=== PATIENT | male | born 1970 | race Caucasian/White ===

== ENCOUNTER 2019-06-22 19:19 | Observation (INO) ==
[2019-06-22 20:15] LABS: Basophils # 0.1 K/mcL (0.0-0.2); Basophils % 0.5 %; Eosinophils # 0.1 K/mcL (0.0-0.6); Hematocrit 45.5 % (37.5-50.1); Hemoglobin 15.7 g/dL (12.9-16.9); Immature Granulocytes % 0.5 % (0-4); Lymphocytes # 2.8 K/mcL (0.6-4.6); Lymphocytes % 28.6 %; Mean Corpuscular HGB Conc 34.5 g/dL (31.6-35.5); Mean Corpuscular Volume 81.1 fL (83.0-100.0); Mean Platelet Volume 9.9 fL (9.4-12.4); Monocytes # 0.9 K/mcL (0.0-1.3); Neutrophils # 5.9 K/mcL (1.6-8.9); Platelet Count 303 K/mcL (140-400); Red Blood Count 5.61 M/mcL (4.19-5.50); Red Cell Distribution Width 13.7 % (11.5-14.5); Segmented Neutrophils % 60.4 %; White Blood Count 9.8 K/mcL (4.3-11.1)
[2019-06-22 20:35] LABS: Alanine Aminotransferase 34 Units/L (7-52); Albumin 4.5 g/dL (3.5-5.7); Albumin/Globulin Ratio 1.5 (1.1-2.2); Alkaline Phosphatase 74 Units/L (34-104); Aspartate Amino Transferase 17 Units/L (13-39); BUN/Creatinine Ratio 13 (6-26); Bilirubin,Direct 0.1 mg/dL (0.0-0.2); Bilirubin,Indirect 0.2 mg/dL (0.0-1.2); Bilirubin,Total 0.3 mg/dL (0.3-1.0); Blood Urea Nitrogen 16 mg/dL (6-20); Calcium 9.8 mg/dL (8.6-10.3); Carbon Dioxide 19 mEq/L (23-29); Chloride 107 mEq/L (98-107); Glucose 104 mg/dL (70-105); Lipase 12 Units/L (11-82); Osmolality,Calculated 283 (280-300); Potassium 3.6 mEq/L (3.5-5.1); Sodium 136 mEq/L (136-145); Total Protein 7.5 g/dL (6.4-8.9); eGFR For African Americans > 60 (> 60); eGFR For Non-African Americans > 60 (> 60)
[2019-06-22 20:38] LABS: Bacteria,Urine None Seen per hpf (None-Few); Hyaline Casts,Urine Few per lpf (None-Few); Squamous Epithelial Cell,Urine Many per lpf (None-Few); WBC,Urine 0-3 per hpf (0-3)
[2019-06-22 20:39] LABS: Bilirubin,Urine Small (Negative); Blood,Urine Trace-intact (Negative); Clarity,Urine Clear (Clear); Color,Urine Yellow (Yellow); Glucose,Urine (UA) Normal (Normal); Ketones,Urine Negative (Negative); Leukocyte Esterase,Urine Negative (Negative); Nitrite,Urine Negative (Negative); PH,Urine 6.5 pH Units (5.0-8.0); Protein,Urine 30 mg/dL (Neg-Trace); Specific Gravity,Urine 1.025 (1.010-1.025); Urobilinogen,Urine Normal (Normal)
[2019-06-22] MEDS ORDERED: 0.9 % Sodium Chloride 1,000 ML IVC ONE (20:51)
[2019-06-22] MEDS ORDERED: *HR* HYDROmorphone (PF) 1 MG/ML SYRINGE IVP ONE ×2 (20:51→23:42)
[2019-06-22] MEDS ORDERED: Ondansetron 4 MG/2 ML VIAL IVP ONE (20:51)
[2019-06-22] MEDS ORDERED: Isovue-370 500 ML BOTTLE IVP ONE (20:51)
--- NOTE | 2019-06-22 23:37 | Emergency Department Note ---
Disposition Clinical Impression: Abdominal pain Qualifiers: Abdominal location: epigastric Qualified Code(s): R10.13 - Epigastric pain Pancreatitis Qualifiers: Chronicity: chronic Pancreatitis type: unspecified pancreatitis type Qualified Code(s): K86.1 - Other chronic pancreatitis Disposition: Admitted As Inpatient Condition: Good Time of Disposition: 00:55 Abdominal Pain HPI - General Chief Complaint: ED Abdominal Pain Stated Complaint: pain in back, burning inside rib cage Time Seen by Provider: 06/22/19 20:52 Source: patient - History of Present Illness HPI Narrative: Patient 29-year-old gentleman presents the emergency department with chief complaint of abdominal pain. The patient reports that he has history of pancreatitis and had a recent flareup and was seen at [facility]. The patient states he had laboratory studies and a CT scan there and they wanted to admit him to the hospital because of the pain that he was having. The patient states that they did not have beds available Pain Scale: 8 - Related Data Home Medications Medication Instructions Recorded Confirmed No Known Home Drugs 06/22/19 06/22/19 Allergies Allergy/AdvReac Type Severity Reaction Status Date / Time No Known Allergies Allergy Verified 06/22/19 19:24 Abdominal Pain PMH - Past Medical History Medical history: Reports: other Psychiatric history: Reports: no psych history - Social History Smoking status: Current every day smoker Alcohol use: Reports: none Drug use: Reports: none Physical Exam - General Limitations: no limitations General appearance: alert Course Vital Signs Temperature 98.5 F 06/22/19 19:21 Pulse Rate 111 06/22/19 19:21 Respiratory Rate 20 06/22/19 19:21 Blood Pressure 141/86 06/22/19 19:21 O2 Sat by Pulse Oximetry 99 06/22/19 19:21 Temperature 97.7 F 06/23/19 02:47 Pulse Rate 69 06/23/19 02:47 Respiratory Rate 15 06/23/19 02:47 Blood Pressure 127/77 06/23/19 02:47 O2 Sat by Pulse Oximetry 96 06/23/19 02:47 Oxygen Delivery Oxygen Delivery Room Air Abdominal Pain - Lab Data Result diagrams: 06/22/19 19:59 06/22/19 19:59 Lab Results 06/22/19 06/22/19 06/22/19 Range/Units 19:59 19:59 20:22 WBC 9.8 (4.3-11.1) K/mcL RBC 5.61 H (4.19-5.50) M/mcL Hgb 15.7 (12.9-16.9) g/dL Hct 45.5 (37.5-50.1) % MCV 81.1 L (83.0-100.0) fL MCH 28.0 (28.0-33.3) pg MCHC 34.5 (31.6-35.5) g/dL RDW 13.7 (11.5-14.5) % Plt Count 303 (140-400) K/mcL MPV 9.9 (9.4-12.4) fL Immature Gran % 0.5 (0-4) % Seg Neutrophils % 60.4 % Lymphocytes % 28.6 % Monocytes % 9.0 % Eosinophils % 1.0 % Basophils % 0.5 % Neutrophils # 5.9 (1.6-8.9) K/mcL Lymphocytes # 2.8 (0.6-4.6) K/mcL Monocytes # 0.9 (0.0-1.3) K/mcL Eosinophils # 0.1 (0.0-0.6) K/mcL Basophils # 0.1 (0.0-0.2) K/mcL Sodium 136 (136-145) mEq/L Potassium 3.6 (3.5-5.1) mEq/L Chloride 107 (98-107) mEq/L Carbon Dioxide 19 L (23-29) mEq/L BUN 16 (6-20) mg/dL Creatinine 1.25 (0.70-1.30) mg/dL Est GFR ( Amer) > 60 (> 60) Est GFR (Non-Af Amer) > 60 (> 60) BUN/Creatinine Ratio 13 (6-26) Glucose 104 (70-105) mg/dL Calculated Osmolality 283 (280-300) Calcium 9.8 (8.6-10.3) mg/dL Total Bilirubin 0.3 (0.3-1.0) mg/dL Direct Bilirubin 0.1 (0.0-0.2) mg/dL Indirect Bilirubin 0.2 (0.0-1.2) mg/dL AST 17 (13-39) Units/L ALT 34 (7-52) Units/L Alkaline Phosphatase 74 (34-104) Units/L Troponin I (< 0.04) ng/mL Serum Total Protein 7.5 (6.4-8.9) g/dL Albumin 4.5 (3.5-5.7) g/dL Globulin 3.0 (2.4-3.5) g/dL Albumin/Globulin Ratio 1.5 (1.1-2.2) Lipase 12 (11-82) Units/L Urine Color Yellow (Yellow) Urine Clarity Clear (Clear) Urine pH 6.5 (5.0-8.0) pH Units Ur Specific [place] 1.025 (1.010-1.025) Urine Protein 30 H (Neg-Trace) mg/dL Urine Glucose (UA) Normal (Normal) mg/dL Urine Ketones Negative (Negative) mg/dL Urine Blood Trace-intact H (Negative) Urine Nitrite Negative (Negative) Urine Bilirubin Small H (Negative) Urine Urobilinogen Normal (Normal) mg/dL Ur Leukocyte Esterase Negative (Negative) Urine Microscopic RBC 5-15 H (0-3) per hpf Urine Microscopic WBC 0-3 (0-3) per hpf Ur Squamous Epith Cells Many H (None-Few) per lpf Urine Bacteria None Seen (None-Few) per hpf Hyaline Casts Few (None-Few) per lpf Ur Culture Indicated? NO (NO) 06/22/19 Range/Units 23:53 WBC (4.3-11.1) K/mcL RBC (4.19-5.50) M/mcL Hgb (12.9-16.9) g/dL Hct (37.5-50.1) % MCV (83.0-100.0) fL MCH (28.0-33.3) pg MCHC (31.6-35.5) g/dL RDW (11.5-14.5) % Plt Count (140-400) K/mcL MPV (9.4-12.4) fL Immature Gran % (0-4) % Seg Neutrophils % % Lymphocytes % % Monocytes % % Eosinophils % % Basophils % % Neutrophils # (1.6-8.9) K/mcL Lymphocytes # (0.6-4.6) K/mcL Monocytes # (0.0-1.3) K/mcL Eosinophils # (0.0-0.6) K/mcL Basophils # (0.0-0.2) K/mcL Sodium (136-145) mEq/L Potassium (3.5-5.1) mEq/L Chloride (98-107) mEq/L Carbon Dioxide (23-29) mEq/L BUN (6-20) mg/dL Creatinine (0.70-1.30) mg/dL Est GFR ( Amer) (> 60) Est GFR (Non-Af Amer) (> 60) BUN/Creatinine Ratio (6-26) Glucose (70-105) mg/dL Calculated Osmolality (280-300) Calcium (8.6-10.3) mg/dL Total Bilirubin (0.3-1.0) mg/dL Direct Bilirubin (0.0-0.2) mg/dL Indirect Bilirubin (0.0-1.2) mg/dL AST (13-39) Units/L ALT (7-52) Units/L Alkaline Phosphatase (34-104) Units/L Troponin I < 0.03 (< 0.04) ng/mL Serum Total Protein (6.4-8.9) g/dL Albumin (3.5-5.7) g/dL Globulin (2.4-3.5) g/dL Albumin/Globulin Ratio (1.1-2.2) Lipase (11-82) Units/L Urine Color (Yellow) Urine Clarity (Clear) Urine pH (5.0-8.0) pH Units Ur Specific [place] (1.010-1.025) Urine Protein (Neg-Trace) mg/dL Urine Glucose (UA) (Normal) mg/dL Urine Ketones (Negative) mg/dL Urine Blood (Negative) Urine Nitrite (Negative) Urine Bilirubin (Negative) Urine Urobilinogen (Normal) mg/dL Ur Leukocyte Esterase (Negative) Urine Microscopic RBC (0-3) per hpf Urine Microscopic WBC (0-3) per hpf Ur Squamous Epith Cells (None-Few) per lpf Urine Bacteria (None-Few) per hpf Hyaline Casts (None-Few) per lpf Ur Culture Indicated? (NO)
[2019-06-23] MEDS ORDERED: Naloxone 0.4 MG/ML INJ IVP PRN (03:33)
[2019-06-23] MEDS ORDERED: Nicotine 21 MG PATCH.TD24 TD SCH (03:45)
[2019-06-23] MEDS ORDERED: *HR* HYDROmorphone (PF) 1 MG/ML SYRINGE IVP PRN (06:50)
--- NOTE | 2019-06-23 06:54 | Internal Med History&Physical ---
Date of Encounter: 06/23/19 Time of Encounter: 06:00 Internal Medicine - H&P: HPI Chief complaint: Chronic pancreatitis Admitted From: Emergency Dept Plans for Post Hospital Care: Home History of present illness: Mr. Perez is a 49 year old male Patient presented to the ER with abdominal pain. He has a history of chronic pancreatitis, and this presentation is similar to his previous episodes. He states that he has had this on and off for the past 4 years, and a few weeks ago he presented to [facility] for evaluation. He had conflicts with the providers there, and thus did not seek further care there. His PCP recommended he come to [facility] for evaluation. ER vital signs: Temperature 98.5, Pulse, 111, Resp. rate 20, Blood pressure 141/86, O2 sat 99% on room air CBC: unremarkable BMP: unremarkable Lipase 12 Initial troponin undetectable UA: negative for infection EKG: Sinus tach, rate 101, QTc 452ms. No ST changes. CT abdomen: IMPRESSION: No CT evidence of intra-abdominal pathology to explain the patient's pain. Calcifications seen in the head of the pancreas and mild prominence/dilatation of the main pancreatic duct. This can be seen with chronic inflammation. Clinical correlation is recommended and comparison with any prior imaging for stability. Otherwise if there is clinical concern pancreatic protocol MRI in 3-6 months can be obtained. In the ER patient received 1 liter of IV fluids, Dilaudid and zofran. He was admitted to the hospital for further management. Upon my assessment, patient is resting in the hospital bed in mild distress due to pain. He denies chest pain, nausea, vomiting, diarrhea and constipation. He has epigastric abdominal pain, with radiation to his back similar to his past pancreatitis episodes. He feels short of breath as well because he cant take deep breaths due to the pain. He denies alcohol use, smokes 1PPD, and denies other drug use. His parents were both adopted, and he did not know his father. His mother has a history of diabetes and liver disease. He is a full code. Past Med Surg Social Fam HX - Past Medical History Medical history: other Additional medical history: pancreatitis Psychiatric history: no psych history - Past Surgical History Additional surgical history: L shoulder - Social History Smoking Status: Current every day smoker Packs per day: 1 Smokeless Tobacco Status: No Alcohol use: none Drug use: none - Family History Mother Living Status: Still Living Hx Family Cancer: Yes Hx Family Endocrine Disorder: Yes Internal Medicine - H&P: Meds No Known Home Drugs 06/22/19 [History] Allergy/AdvReac Type Severity Reaction Status Date / Time No Known Allergies Allergy Verified 06/22/19 19:24 All Systems PM: A 10-system review of systems was performed and is negative for pertinent findings except as documented above in the HPI. - Constitutional Vitals: Temp Pulse Resp BP Pulse Ox 97.7 F 69 15 127/77 96 06/23/19 02:47 06/23/19 02:47 06/23/19 02:47 06/23/19 02:47 06/23/19 02:47 General appearance: Present: cooperative, mild distress, A&O X 3, pleasant, answers questions appropriately Exam: - - Head Head exam: Present: normal inspection - Eye Eye exam: Present: EOMI, normal appearance - Respiratory Respiratory exam: Present: CTAB. Absent: rales, respiratory distress, rhonchi, wheezes - Cardiovascular Cardiovascular exam: Present: RRR. Absent: diastolic murmur, systolic murmur - GI/Abdominal GI/Abdominal exam: Present: normal bowel sounds, soft, tenderness Additional comments: Epigastric tenderness with palpation - Extremities Exam Extremities exam: Present: warm, radial pulses palpable and symmetrical. Absen t: calf tenderness, pedal edema, tenderness - Neurological Exam Neurological exam: Present: no focal deficits, strengths equal and symetr throughout. Absent: motor sensory deficit, facial droop, speech deficit - Skin Skin exam: Present: dry, normal color, warm Internal Med - H&P Results - Labs CBC & Chem 7: 06/22/19 19:59 06/22/19 19:59 Labs: Short CBC 06/22/19 Range/Units 19:59 WBC 9.8 (4.3-11.1) K/mcL Hgb 15.7 (12.9-16.9) g/dL Hct 45.5 (37.5-50.1) % Plt Count 303 (140-400) K/mcL Neutrophils # 5.9 (1.6-8.9) K/mcL BMP 06/22/19 19:59 Sodium 136 Potassium 3.6 Chloride 107 Carbon Dioxide 19 L BUN 16 Creatinine 1.25 Glucose 104 Calcium 9.8 Cardiac Enzymes 06/22/19 Range/Units 23:53 Troponin I < 0.03 (< 0.04) ng/mL Liver Function 06/22/19 Range/Units 19:59 Total Bilirubin 0.3 (0.3-1.0) mg/dL Direct Bilirubin 0.1 (0.0-0.2) mg/dL AST 17 (13-39) Units/L ALT 34 (7-52) Units/L Alkaline Phosphatase 74 (34-104) Units/L Albumin 4.5 (3.5-5.7) g/dL Urine 06/22/19 Range/Units 20:22 Urine Color Yellow (Yellow) Urine Clarity Clear (Clear) Urine pH 6.5 (5.0-8.0) pH Units Ur Specific [place] 1.025 (1.010-1.025) Urine Protein 30 H (Neg-Trace) mg/dL Urine Glucose (UA) Normal (Normal) mg/dL - Impressions ITS Impressions Abdomen/Pelvis CT 06/22/19 21:35 IMPRESSION: No CT evidence of intra-abdominal pathology to explain the patient's pain. Calcifications seen in the head of the pancreas and mild prominence/dilatation of the main pancreatic duct. This can be seen with chronic inflammation. Clinical correlation is recommended and comparison with any prior imaging for stability. Otherwise if there is clinical concern pancreatic protocol MRI in 3-6 months can be obtained. D/ / Praveen Fagan / Praveen Fagan Interpreting Provider: Praveen Fagan - Assessment and Plan (1) Pancreatitis Current Visit: Yes Status: Acute Assessment and plan: Patient has chronic pancreatitis. He states that he is not sure what triggers his pancreatitis. He denies alcohol use. He is unclear of his family history. His lipase is not elevated, but CT does show inflammation. He states that he typically does not get elevated lipase. Nothing by mouth IV fluid hydration Pain management as needed Advance diet as tolerated Qualifiers: Chronicity: chronic Pancreatitis type: unspecified pancreatitis type Qualified Code(s): K86.1 - Other chronic pancreatitis (2) Abdominal pain Current Visit: Yes Status: Acute Assessment and plan: Likely secondary to pancreatitis. He has had multiple flareups of this over the years, most recently about 2 years ago. He has had the pain off and on since then but has not come into the hospital. He has also been experiencing dark stools lately, and this potentially could also be a ulcer of some kind. Management as above Stool occult blood test Qualifiers: Abdominal location: epigastric Qualified Code(s): R10.13 - Epigastric pain (3) Dark stools Current Visit: Yes Status: Acute Assessment and plan: Patient states that he has had some dark stools. He recently took a colon test for his PCP and it came back positive. He has never had a colonoscopy before. He was to follow-up outpatient with a GI doctor at [facility]. Hemoglobin currently stable. Stool occult blood test (4) Current nicotine use Current Visit: Yes Status: Acute Assessment and plan: Nicotine patch (5) DVT prophylaxis Current Visit: Yes Status: Acute Assessment and plan: SCDs - Time Spent With Patient Total time spent is greater than 50% in coordination of care (as documented) at patient's floor/unit and/or counseling patient:
[2019-06-23] MEDS: *HR* HYDROmorphone (PF) 1 MG/ML SYRINGE IVP PRN ×4 (08:18→23:21)
[2019-06-23] MEDS: 0.9 % Sodium Chloride 1,000 ML IVC SCH ×2 (08:19→15:35)
[2019-06-23 09:06] LABS: Hematocrit 43.1 % (37.5-50.1); Mean Corpuscular HGB Conc 32.7 g/dL (31.6-35.5); Mean Corpuscular Hemoglobin 28.1 pg (28.0-33.3); Mean Corpuscular Volume 85.9 fL (83.0-100.0); Mean Platelet Volume 10.2 fL (9.4-12.4); Platelet Count 271 K/mcL (140-400); Red Blood Count 5.02 M/mcL (4.19-5.50); Red Cell Distribution Width 13.8 % (11.5-14.5); White Blood Count 9.3 K/mcL (4.3-11.1)
[2019-06-23 09:08] LABS: Hemoglobin 14.1 g/dL (12.9-16.9)
[2019-06-23 09:24] LABS: BUN/Creatinine Ratio 14 (6-26); Blood Urea Nitrogen 16 mg/dL (6-20); Calcium 8.8 mg/dL (8.6-10.3); Carbon Dioxide 26 mEq/L (23-29); Chloride 108 mEq/L (98-107); Chol/HDL Ratio 4.8 (0-4.9); Cholesterol 174 mg/dL (< 200); Glucose 81 mg/dL (70-105); HDL Cholesterol 36 mg/dL (40-59); LDL Cholesterol,Calculated 116 mg/dL (0-99); Osmolality,Calculated 284 (280-300); Potassium 3.8 mEq/L (3.5-5.1); Sodium 137 mEq/L (136-145); Triglycerides 112 mg/dL (< 150); eGFR For African Americans > 60 (> 60); eGFR For Non-African Americans > 60 (> 60)
--- NOTE | 2019-06-23 11:13 | Event Note ---
Date of Encounter: 06/23/19 Time of Encounter: 09:30 H&P reviewed. 49-year-old male with self-reported history of chronic pancreatitis of unknown etiology for the last 4 years was admitted overnight due to intractable epigastric pain. It was attribute it to acute on chronic pancreatitis but laboratory workup is unremarkable including WBC and lipase. LFT unremarkable and CT only showed calcifications in the head of the pancreas and mild prominence of the main pancreatic duct. Will initiate the workup including US and lipid panel. Keep NPO and continue IVF and analgesics.
--- NOTE | 2019-06-23 12:38 | Electrocardiograph Report ---
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
[2019-06-24] MEDS: *HR* HYDROmorphone (PF) 1 MG/ML SYRINGE IVP PRN (04:00)
[2019-06-24] MEDS ORDERED: *HR* Dextrose 50 % in Water (Syg) 50 ML SYRINGE IVP PRN (05:41)
[2019-06-24] MEDS ORDERED: Dextrose Gel 15 GM/37.5 ML TUBE PO PRN ×2 (05:41)
[2019-06-24] MEDS ORDERED: D5% in Water 1,000 ML IVC PRN (05:41)
[2019-06-24 05:52] LABS: Basophils % 0.3 %; Eosinophils # 0.2 K/mcL (0.0-0.6); Eosinophils % 2.2 %; Hematocrit 42.7 % (37.5-50.1); Hemoglobin 13.8 g/dL (12.9-16.9); Immature Granulocytes % 0.4 % (0-4); Lymphocytes # 2.6 K/mcL (0.6-4.6); Lymphocytes % 28.7 %; Mean Corpuscular HGB Conc 32.3 g/dL (31.6-35.5); Mean Corpuscular Volume 86.8 fL (83.0-100.0); Mean Platelet Volume 9.9 fL (9.4-12.4); Monocytes # 0.7 K/mcL (0.0-1.3); Monocytes % 8.1 %; Neutrophils # 5.5 K/mcL (1.6-8.9); Platelet Count 259 K/mcL (140-400); Red Blood Count 4.92 M/mcL (4.19-5.50); Red Cell Distribution Width 13.9 % (11.5-14.5); Segmented Neutrophils % 60.3 %; White Blood Count 9.1 K/mcL (4.3-11.1)
[2019-06-24 06:18] LABS: Alanine Aminotransferase 28 Units/L (7-52); Albumin 3.9 g/dL (3.5-5.7); Albumin/Globulin Ratio 1.4 (1.1-2.2); Alkaline Phosphatase 78 Units/L (34-104); Aspartate Amino Transferase 15 Units/L (13-39); BUN/Creatinine Ratio 17 (6-26); Bilirubin,Total 0.8 mg/dL (0.3-1.0); Blood Urea Nitrogen 18 mg/dL (6-20); Calcium 8.6 mg/dL (8.6-10.3); Carbon Dioxide 24 mEq/L (23-29); Chloride 105 mEq/L (98-107); Globulin 2.7 g/dL (2.4-3.5); Glucose 73 mg/dL (70-105); Osmolality,Calculated 280 (280-300); Potassium 3.8 mEq/L (3.5-5.1); Sodium 135 mEq/L (136-145); Total Protein 6.6 g/dL (6.4-8.9); eGFR For African Americans > 60 (> 60); eGFR For Non-African Americans > 60 (> 60)
[2019-06-24 06:31] VITALS: BP 115/75
--- NOTE | 2019-06-24 08:43 | Discharge Summary ---
- NOTES TO OUTPATIENT PROVIDER Notes to Outpatient Provider: Left AMA, suspect drug-seeking behavior Orders not resulted at time of discharge: Pending orders 06/23/19 06:51 Occult Blood,Stool [BF] Routine Date of Encounter: 06/24/19 Time of Encounter: 07:15 - Discharge Diagnosis (1) Pancreatitis Priority: Primary Status: Acute Qualifiers: Chronicity: chronic Pancreatitis type: unspecified pancreatitis type Qualified Code(s): K86.1 - Other chronic pancreatitis (2) Abdominal pain Priority: Secondary Status: Acute Qualifiers: Abdominal location: epigastric Qualified Code(s): R10.13 - Epigastric pain (3) Dark stools Priority: Secondary Status: Acute (4) Current nicotine use Priority: Secondary Status: Acute (5) DVT prophylaxis Priority: Secondary Status: Acute (6) Drug-seeking behavior Priority: Secondary Status: Acute Hospital course: Mr. Perez is a 49 year old male with self-reported history of chronic pancreatitis of unknown etiology for the last 4 years who was admitted overnight due to intractable epigastric pain. It was attributed to acute on chronic pancreatitis but laboratory workup was unremarkable including WBC and lipase. CT also did not show any acute pancreatic edema or peripancreatic stranding but only demonstrated calcifications in the head of pancreas and mild prominence of the main pancreatic duct. EtOH level and TG were normal and US did not show any acute findings. However, despite being treated adequately for 24 hours, he continued to complain of epigastric pain hence he was advised that he is kept NPO for another day. When he was told of the suggestion, he decided to leave AMA despite being informed of the risk of worsening pancreatitis, sepsis, and potential . Based on his demeanor and exam findings which did not really reveal significant epigastric tenderness especially when he is distracted, I am concerned for potential drug seeking behavior as he was requiring fairly high dose of dilaudid during his stay. Discharge discussed with: patient, nurse - Time Spent with Patient Total time spent providing and/or coordinating discharge services: - Discharge Medications Prescriptions: No Action No Known Home Drugs 1 each .ROUTE AD each Home Medications: No Known Home Drugs 06/22/19 [History] Allergies/Adverse Reactions: Allergy/AdvReac Type Severity Reaction Status Date / Time No Known Allergies Allergy Verified 06/23/19 09:32 Date of admission: 06/23/19 01:59 Primary care physician: PCP NONE Consults: 06/23/19 02:39 Consult to Nutrition [CONS] Routine Comment: Consulting Provider: NUTRITION Reason for Dietary Consult: MST Score - Constitutional Vitals: Temp Pulse Resp BP Pulse Ox 97.7 F 71 17 115/75 96 06/24/19 06:24 06/24/19 06:24 06/24/19 06:24 06/24/19 06:24 06/24/19 06:24 General appearance: Present: cooperative, mild distress, A&O X 3, pleasant, answers questions appropriately Exam: General: Alert and oriented, not in acute distress. Cardiovascular:Normal S1 & S2, No JVD. Pulse regular. Lungs: clear to auscultation, no wheezes/rales Abdomen:Soft, inconsistent tenderness in the epigastric region which appears to be much less when he is distracted. No peritoneal signs Extremities:No deformity or swelling Neurological:Normal cognition and motor skills. Non-focal Skin:Normal color, no rash, no lesions. - Patient Status Disposition: Left Against Medical Advice Condition: Good - Discharge Instructions Instructions: Pancreatitis (DC) Follow Up With: NONE,PCP [Primary Care Provider] -
== END 2019-06-24 08:30 | disposition left against medical advice (07) ==
LOC: EMEROOARM 19:19 → 3ANU 19:19 → SUATTDRO 06-23 01:59 → 3ANU 06-23 02:22
PROVIDERS: ADMIT Internal Medicine; ATTEND Internal Medicine

== ENCOUNTER 2020-01-29 16:00 | Observation (INO) ==
[2020-01-29] MEDS ORDERED: 0.9 % Sodium Chloride 1,000 ML IVC ONE (16:16)
[2020-01-29] MEDS ORDERED: *HR* FentaNYL (PF) 100 MCG/2 ML VIAL IVP STA (16:16)
[2020-01-29] MEDS ORDERED: Ondansetron 4 MG/2 ML VIAL IVP STA (16:16)
[2020-01-29 17:00] LABS: Prothrombin Time 11.2 Seconds (9.4-12.1)
[2020-01-29 17:03] LABS: Basophils # 0.1 K/mcL (0.0-0.2); Basophils % 0.4 %; Eosinophils % 0.1 %; Hematocrit 45.8 % (37.5-50.1); Immature Granulocytes % 0.9 % (0-4); Lymphocytes # 0.9 K/mcL (0.6-4.6); Lymphocytes % 8.4 %; Mean Corpuscular HGB Conc 32.8 g/dL (31.6-35.5); Mean Corpuscular Volume 82.5 fL (83.0-100.0); Mean Platelet Volume 9.4 fL (9.4-12.4); Monocytes # 0.1 K/mcL (0.0-1.3); Monocytes % 0.8 %; Neutrophils # 9.9 K/mcL (1.6-8.9); Platelet Count 419 K/mcL (140-400); Red Blood Count 5.55 M/mcL (4.19-5.50); Red Cell Distribution Width 13.9 % (11.5-14.5); Segmented Neutrophils % 89.4 %; White Blood Count 11.1 K/mcL (4.3-11.1)
[2020-01-29 17:14] LABS: Alanine Aminotransferase 20 Units/L (7-52); Albumin 4.3 g/dL (3.5-5.7); Albumin/Globulin Ratio 1.4 (1.1-2.2); Alkaline Phosphatase 84 Units/L (34-104); Aspartate Amino Transferase 15 Units/L (13-39); BUN/Creatinine Ratio 10 (6-26); Bilirubin,Direct 0.1 mg/dL (0.0-0.2); Bilirubin,Indirect 0.2 mg/dL (0.0-1.0); Bilirubin,Total 0.3 mg/dL (0.3-1.0); Blood Urea Nitrogen 10 mg/dL (6-20); Calcium 9.1 mg/dL (8.6-10.3); Carbon Dioxide 22 mEq/L (23-29); Chloride 102 mEq/L (98-107); Globulin 3.1 g/dL (2.4-3.5); Glucose 158 mg/dL (70-105); Lipase 114 Units/L (11-82); Osmolality,Calculated 280 (280-300); Potassium 3.8 mEq/L (3.5-5.1); Sodium 134 mEq/L (136-145); Total Protein 7.4 g/dL (6.4-8.9); eGFR For African Americans > 60 (> 60); eGFR For Non-African Americans > 60 (> 60)
[2020-01-29] MEDS ORDERED: *HR* HYDROmorphone (PF) 1 MG/ML SYRINGE IVP ONE (17:43)
[2020-01-29 17:49] LABS: Bilirubin,Urine Negative (Negative); Blood,Urine Trace (Negative); Clarity,Urine Clear (Clear); Color,Urine Yellow (Yellow); Glucose,Urine (UA) Normal (Normal); Ketones,Urine Negative (Negative); Leukocyte Esterase,Urine Negative (Negative); Nitrite,Urine Negative (Negative); Protein,Urine Negative (Neg-Trace); Specific Gravity,Urine > 1.030 (1.010-1.025); Urobilinogen,Urine Normal (Normal)
[2020-01-29 17:50] LABS: Bacteria,Urine None Seen per hpf (None-Few); Hyaline Casts,Urine None Seen per lpf (None-Few); RBC,Urine 0-3 per hpf (0-3); Squamous Epithelial Cell,Urine Moderate per lpf (None-Few); WBC,Urine 0-3 per hpf (0-3)
[2020-01-29] MEDS ORDERED: Ondansetron ODT 4 MG TAB.RAPDIS SL PRN (20:19)
[2020-01-29] MEDS ORDERED: Naloxone 0.4 MG/ML INJ IVP PRN (20:19)
[2020-01-29] MEDS ORDERED: Acetaminophen 325 MG TABLET PO PRN (20:19)
[2020-01-29] MEDS: *HR* HYDROcodone/Acet 5/325 mg TABLET PO PRN (21:21)
[2020-01-29] MEDS: Ringers Solution, Lactated 1,000 ML IVC SCH (21:21)
[2020-01-29] MEDS: Nicotine 21 MG PATCH.TD24 TD SCH (22:13)
[2020-01-30 03:20] LABS: Basophils % 0.2 %; Hematocrit 44.2 % (37.5-50.1); Hemoglobin 14.6 g/dL (12.9-16.9); Lymphocytes # 1.7 K/mcL (0.6-4.6); Lymphocytes % 13.8 %; Mean Corpuscular Hemoglobin 27.1 pg (28.0-33.3); Mean Platelet Volume 9.5 fL (9.4-12.4); Monocytes # 0.2 K/mcL (0.0-1.3); Monocytes % 1.9 %; Neutrophils # 10.3 K/mcL (1.6-8.9); Platelet Count 398 K/mcL (140-400); Red Blood Count 5.39 M/mcL (4.19-5.50); Red Cell Distribution Width 13.8 % (11.5-14.5); Segmented Neutrophils % 83.1 %; White Blood Count 12.4 K/mcL (4.3-11.1)
[2020-01-30] MEDS: Ketorolac 30 MG/ML VIAL IVP PRN ×2 (03:35→10:18)
[2020-01-30 03:39] LABS: BUN/Creatinine Ratio 11 (6-26); Blood Urea Nitrogen 10 mg/dL (6-20); Calcium 8.9 mg/dL (8.6-10.3); Carbon Dioxide 22 mEq/L (23-29); Chloride 102 mEq/L (98-107); Glucose 123 mg/dL (70-105); Magnesium 1.9 mg/dL (1.6-2.6); Osmolality,Calculated 276 (280-300); Phosphorous 2.7 mg/dL (2.7-4.5); Potassium 4.2 mEq/L (3.5-5.1); Sodium 133 mEq/L (136-145); eGFR For African Americans > 60 (> 60); eGFR For Non-African Americans > 60 (> 60)
[2020-01-30] MEDS: Ringers Solution, Lactated 1,000 ML IVC SCH (03:58)
[2020-01-30] MEDS: *HR* Heparin 5,000 UNIT/ML VIAL SQ SCH ×2 (05:37→17:42)
[2020-01-30] MEDS: *HR* HYDROcodone/Acet 5/325 mg TABLET PO PRN ×3 (06:21→20:07)
[2020-01-30] MEDS: Nicotine 21 MG PATCH.TD24 TD SCH ×2 (08:20→20:07)
[2020-01-30] MEDS: MetroNIDAZOLE 500 MG/100 ML 500 MG/100 ML BAG IVPB SCH ×2 (10:20→17:43)
[2020-01-30 11:54] LABS: Chol/HDL Ratio 5.7 (0-4.9); Cholesterol 204 mg/dL (< 200); HDL Cholesterol 36 mg/dL (40-59); LDL Cholesterol,Calculated 144 mg/dL (0-99); Lipase 36 Units/L (11-82); Triglycerides 118 mg/dL (< 150)
[2020-01-31] MEDS: MetroNIDAZOLE 500 MG/100 ML 500 MG/100 ML BAG IVPB SCH ×2 (00:39→08:47)
[2020-01-31 02:39] LABS: Basophils # 0.1 K/mcL (0.0-0.2); Basophils % 0.6 %; Eosinophils # 0.1 K/mcL (0.0-0.6); Eosinophils % 1.1 %; Hemoglobin 14.1 g/dL (12.9-16.9); Immature Granulocytes % 0.4 % (0-4); Lymphocytes # 3.3 K/mcL (0.6-4.6); Lymphocytes % 36.1 %; Mean Corpuscular Hemoglobin 26.5 pg (28.0-33.3); Mean Corpuscular Volume 82.6 fL (83.0-100.0); Mean Platelet Volume 9.8 fL (9.4-12.4); Monocytes # 0.7 K/mcL (0.0-1.3); Monocytes % 7.5 %; Neutrophils # 4.9 K/mcL (1.6-8.9); Platelet Count 359 K/mcL (140-400); Red Blood Count 5.33 M/mcL (4.19-5.50); Red Cell Distribution Width 14.1 % (11.5-14.5); Segmented Neutrophils % 54.3 %; White Blood Count 9.1 K/mcL (4.3-11.1)
[2020-01-31 02:58] LABS: Alanine Aminotransferase 18 Units/L (7-52); Albumin 3.7 g/dL (3.5-5.7); Albumin/Globulin Ratio 1.4 (1.1-2.2); Alkaline Phosphatase 64 Units/L (34-104); Aspartate Amino Transferase 16 Units/L (13-39); BUN/Creatinine Ratio 15 (6-26); Bilirubin,Total 0.4 mg/dL (0.3-1.0); Blood Urea Nitrogen 15 mg/dL (6-20); Calcium 8.7 mg/dL (8.6-10.3); Carbon Dioxide 23 mEq/L (23-29); Chloride 104 mEq/L (98-107); Globulin 2.7 g/dL (2.4-3.5); Glucose 85 mg/dL (70-105); Magnesium 2.1 mg/dL (1.6-2.6); Osmolality,Calculated 278 (280-300); Phosphorous 2.6 mg/dL (2.7-4.5); Sodium 134 mEq/L (136-145); Total Protein 6.4 g/dL (6.4-8.9); eGFR For African Americans > 60 (> 60); eGFR For Non-African Americans > 60 (> 60)
[2020-01-31] MEDS: *HR* HYDROcodone/Acet 5/325 mg TABLET PO PRN (03:15)
[2020-01-31] MEDS: *HR* Heparin 5,000 UNIT/ML VIAL SQ SCH (05:39)
[2020-01-31] MEDS: Ketorolac 30 MG/ML VIAL IVP PRN (05:40)
[2020-01-31 11:14] VITALS: BP 129/77
== END 2020-01-31 11:21 | disposition home or self-care (01) ==
LOC: EMEROOARM 16:00 → 3BNU 16:00 → SUATTDRO 19:16 → 3BNU 19:57
PROVIDERS: ADMIT Family Medicine; ATTEND Internal Medicine

== ENCOUNTER 2020-11-26 10:54 | Observation (INO) ==
[2020-11-26] MEDS ORDERED: CeFAZolin Syr 2,000MG/20 ML 2,000 MG/20 ML SYRINGE IVPB ONE (11:13)
[2020-11-26] MEDS ORDERED: Ringers Solution, Lactated 1,000 ML IVC SCH ×2 (11:15→15:50)
[2020-11-26] MEDS ORDERED: *HR* Succinylcholine 200 MG/10 ML VIAL IVP ONE (11:34)
[2020-11-26] MEDS ORDERED: Ondansetron 4 MG/2 ML VIAL ONE (11:34)
[2020-11-26] MEDS ORDERED: *HR* Propofol 200 MG/20 ML VIAL IVP ONE (11:34)
[2020-11-26] MEDS ORDERED: *HR* Midazolam HCl 2 MG/2 ML VIAL ONE (11:34)
[2020-11-26] MEDS ORDERED: *HR* FentaNYL (PF) 100 MCG/2 ML VIAL ONE ×2 (11:34→13:54)
[2020-11-26] MEDS ORDERED: Lidocaine -MPF 2% 2 ML VIAL ONE (11:34)
[2020-11-26] MEDS ORDERED: Dexamethasone 4 MG/ML VIAL ONE ×2 (11:34→13:52)
[2020-11-26] MEDS ORDERED: *HR* Rocuronium Bromide 50 MG/5 ML VIAL ONE (11:34)
[2020-11-26] MEDS ORDERED: Lidocaine HCL 4 ML Topical Solution (Laryng-O-Jet Kit Sterile Pak) TP ONE (11:34)
[2020-11-26] MEDS ORDERED: Ondansetron ODT 4 MG TAB.RAPDIS SL ONE (11:46)
[2020-11-26] MEDS ORDERED: *HR* OxyCODONE Immed Rel 5 MG TABLET PO PRN (11:46)
[2020-11-26] MEDS ORDERED: Acetaminophen IV 1,000 MG/100 ML BAG IVPB PRN (11:46)
[2020-11-26] MEDS ORDERED: *HR* FentaNYL (PF) 100 MCG/2 ML VIAL IVP PRN (11:46)
[2020-11-26] MEDS ORDERED: *HR* Meperidine 25 MG/ML SYRINGE IVP PRN (11:46)
[2020-11-26] MEDS ORDERED: Sugammadex Sodium 200 MG/2 ML VIAL IV ONE ×2 (11:49→14:30)
[2020-11-26] MEDS ORDERED: Bacitracin 50,000 UNIT, Polymyxin B Sulfate 500,000 UNIT, Sodium Chloride IRRigation 1,... IR ONE (12:30)
[2020-11-26] MEDS ORDERED: EPHEDrine 50 MG/ML VIAL ONE (14:08)
[2020-11-26] MEDS ORDERED: Ketorolac 30 MG/ML VIAL ONE (14:32)
[2020-11-26] MEDS: *HR* HYDROmorphone PF 0.5 MG/0.5 ML SYRINGE IVP PRN ×4 (14:54→15:19)
[2020-11-26] MEDS ORDERED: Ondansetron 4 MG/2 ML VIAL IVP PRN (15:50)
[2020-11-26] MEDS ORDERED: Naloxone 0.4 MG/ML INJ IVP PRN (15:50)
[2020-11-26] MEDS ORDERED: Acetaminophen 325 MG TABLET PO PRN (15:50)
[2020-11-26] MEDS: *HR* OxyCODONE Immed Rel 5 MG TABLET PO PRN ×2 (18:17→22:23)
[2020-11-26] MEDS: CeFAZolin 2 GM/120 ML BAG IVPB SCH (20:42)
[2020-11-26] MEDS: *HR* HYDROcodone/Acet 5/325 mg TABLET PO PRN (20:49)
[2020-11-27] MEDS: *HR* OxyCODONE Immed Rel 5 MG TABLET PO PRN ×6 (02:27→23:36)
[2020-11-27] MEDS: CeFAZolin 2 GM/120 ML BAG IVPB SCH (04:23)
[2020-11-27] MEDS: *HR* HYDROcodone/Acet 5/325 mg TABLET PO PRN ×3 (04:59→17:50)
[2020-11-27] MEDS: diazePAM 5 MG TABLET PO PRN ×2 (10:46→17:50)
[2020-11-27] MEDS: Acetaminophen 325 MG TABLET PO SCH ×3 (13:12→23:34)
[2020-11-27] MEDS: tiZANidine 4 MG TABLET PO PRN ×2 (13:34→21:34)
[2020-11-27] MEDS: Gabapentin 400 MG CAPSULE PO SCH (23:37)
[2020-11-28] MEDS: *HR* HYDROcodone/Acet 5/325 mg TABLET PO PRN ×2 (01:51→08:53)
[2020-11-28] MEDS: diazePAM 5 MG TABLET PO PRN ×2 (01:51→08:54)
[2020-11-28] MEDS: Acetaminophen 325 MG TABLET PO SCH ×2 (06:30→10:53)
[2020-11-28] MEDS: *HR* OxyCODONE Immed Rel 5 MG TABLET PO PRN ×2 (06:50→10:52)
[2020-11-28] MEDS: Gabapentin 400 MG CAPSULE PO SCH (08:53)
[2020-11-28 10:37] VITALS: BP 122/75
== END 2020-11-28 12:43 | disposition home health service (06) ==
LOC: 3NENU 10:54 → SAMDAY 10:54 → 3NENU 15:48
PROVIDERS: ADMIT Orthopaedic Surgery Orthopaedic Surgery of the Spine; ATTEND Orthopaedic Surgery Orthopaedic Surgery of the Spine